=== PATIENT | male | born 1980 | race Two or more races ===

== ENCOUNTER 2017-02-07 17:05 | Emergency (ER) | payer SELFPAY ==
[~2017-02-07] VITALS: Ht 157.5 cm; Wt 54.4 kg
[2017-02-07 17:15] VITALS: BP 123/82
--- NOTE | 2017-02-07 17:35 | Emergency Room Report ---
History of Present Illness General Chief Complaint: Skin Rash/Abscess Source: Patient Present Illness HPI 36 Yo Male presents to the ED c/o pimples on the face x over 6 months. denies recent travel , itching, fevers, wheezing, swelling of the lips or tongue. pt. reports one pimple also on the eye lid of the left eye. denies pain. denies new medications, denies lesions elsewhere on the body. Denies CP, Palpitations, LOC , AMS, dizziness, Changes in Vision, Sensation, paresthesias, or a sudden severe headache. Allergies: Coded Allergies: No Known Allergies (Unverified , 02/07/17) Patient History Past Medical History: see triage record Past Surgical History: none Pertinent Family History: none Immunizations: UTD Reviewed Nursing Documentation: PMH: Agreed, PSxH: Agreed Nursing Documentation-PMH Past Medical History: No Stated History Review of Systems All Other Systems: negative except mentioned in HPI Physical Exam Vital Signs Date Time Temp Pulse Resp B/P Pulse Ox O2 Delivery O2 Flow Rate FiO2 02/07/17 17:10 98.1 70 14 123/82 97 Room Air Sp02 EP Interpretation: reviewed, normal General Appearance: no apparent distress, alert, GCS 15, non-toxic Head: normocephalic, atraumatic Eyes: left eye other - pustule noted to the left eyelid at the crease, no erythema or evidence of orbital cellulitis, bilateral eye PERRL, bilateral eye normal inspection ENT: hearing grossly normal, normal pharynx, no angioedema, normal voice, TMs + canals normal, uvula midline Neck: full range of motion, supple/symm/no masses Respiratory: lungs clear, normal breath sounds, speaking full sentences Cardiovascular #1: regular rate, rhythm, no edema Musculoskeletal: back normal, gait/station normal, normal range of motion, non- tender Neurologic: alert, oriented x3, responsive, motor strength/tone normal, sensory intact, speech normal Psychiatric: judgement/insight normal, memory normal, mood/affect normal Skin: normal color, warm/dry, well hydrated, rash - pustules generalized on the face and jawline, with mild erythema about each pustule, pt. also has moderate deep scars consistent with cystic acne. no excoriations or evidence of infestation. Lymphatic: no adenopathy Medical Decision Making PA Attestation Dr. Montague is my supervising Physician whom patient management has been discussed with. Diagnostic Impression: Primary Impression: Pustular acne Additional Impression: Rash and other nonspecific skin eruption ER Course 36 Yo Male presents to the ED c/o pimples on the face x over 6 months. denies recent travel , itching, fevers, wheezing, swelling of the lips or tongue. pt. reports one pimple also on the eye lid of the left eye. denies pain. denies new medications, denies lesions elsewhere on the body. Ddx considered but are not limited to cellulitis, scabies, shingles, varicella, dermatitis, urticaria, eczema, tinea, acne Vital signs: are WNL, pt. is afebrile H&PE are most consistent with pustular acne ORDERS: none required at this time, the diagnosis is clinical ED INTERVENTIONS: None required at this time. d/w pt. to follow up with hadoop engineer or pcp DISCHARGE: At this time pt. is stable for d/c to home. Will provide printed patient care instructions, and any necessary prescriptions. Care plan and follow up instructions have been discussed with the patient prior to discharge. Last Vital Signs Date Time Temp Pulse Resp B/P Pulse Ox O2 Delivery O2 Flow Rate FiO2 02/07/17 17:15 98.1 70 14 123/82 97 Room Air Disposition: HOME, SELF-CARE Condition: Stable Scripts Benzoyl Peroxide (Acne Foaming Wash) 156 Gm Cleanser 1 APPLIC TP BID, #156 GM Prov: Katarina Sanchez 02/07/17 Doxycycline Hyclate* (VIBRAMYCIN*) 100 Mg Capsule 100 MG ORAL EVERY 12 HOURS for 10 Days, #20 CAP 0 Refills Prov: Katarina Sanchez 02/07/17 Patient Instructions: Acne, Rash Additional Instructions: Take medications as directed. Follow up with PCP in 3-5 days, follow up with hadoop engineer is recommended. Return sooner to ED if new symptoms occur, or current symptoms become worse. - Please note that this Emergency Department Report was dictated using [employer] and physics instructor technology software, occasionally this can lead to erroneous entry secondary to interpretation by the dictation equipment. Katarina Sanchez Feb 07, 2017 17:35
[2017-02-07] MEDS ORDERED: [UNRECOGNIZED DRUG - OTHER] TP (17:38)
[2017-02-07] MEDS ORDERED: VIBRAMYCIN100 MG ORAL (17:38)
[2017-02-07 17:45] VITALS: BP 123/82
== END 2017-02-07 17:55 | disposition home or self-care (01) ==
LOC: EMR 17:53
DX: L70.0 Acne vulgaris (principal); R21 Rash and other nonspecific skin eruption
CPT/HCPCS: 99284